=== PATIENT | female | born 1940 ===

== ENCOUNTER 2020-08-05 19:44 | Emergency (ER) | payer SELFPAY ==
[2020-08-06 03:11] LABS: SARS-CoV-2 MS2 Positive; SARS-CoV-2 N Gene Negative; SARS-CoV-2 S Gene Negative; SARS-CoV-2 by NAA Not Detected (NotDetected); SARS-CoV-2 orf1ab Negative
== END 2020-08-05 20:28 | disposition home or self-care (01) ==
LOC: ERS 19:44
DX: Z20.828 Contact with and (suspected) exposure to other viral communicable diseases (principal); I10 Essential (primary) hypertension; I48.91 Unspecified atrial fibrillation
CPT/HCPCS: 87635; 99283; U0003